=== PATIENT | female | born 1945 | race Caucasian/White ===

== ENCOUNTER 2017-10-05 08:15 | Emergency (ER) | payer OTHER, MEDICARE ==
[~2017-10-05] VITALS: Ht 149.9 cm; Wt 48.0 kg
[~2017-10-05 08:15] MED LIST: ASPI81TA11 PO; DOCU1CAP39 PO; ENOX40P SQ; HYDR-2768 PO; HYDR-3129 PO; LISI5 PO; METF500 PO; MVI PO; WALKER ROLLING; [UNRECOGNIZED DRUG - SUPPLY]
[2017-10-05 08:26] VITALS: BP 158/74; PULSE 90; RESP 18; TEMP 99.1; O2SAT 98
[2017-10-05] MEDS ORDERED: ASPI1TAB57 PO (09:48)
[2017-10-05] MEDS ORDERED: HYDR25TA5 PO (09:48)
[2017-10-05] MEDS ORDERED: LISI-519 PO (09:48)
[2017-10-05] MEDS ORDERED: MULTTAB67 PO (09:48)
[2017-10-05] MEDS ORDERED: METF500T PO (09:48)
[2017-10-05] MEDS ORDERED: COLA100C5 PO (09:48)
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
[2017-10-05] MEDS ORDERED: IBUPROFEN 600 MG TAB PO ONE (10:30)
[2017-10-05] MEDS ORDERED: CYCL5TAB PO (10:44)
== END 2017-10-05 11:00 | disposition home or self-care (01) ==
LOC: NEPK 08:15
DX: G44.319 Acute post-traumatic headache, not intractable (principal); E11.9 Type 2 diabetes mellitus without complications; I10 Essential (primary) hypertension; V49.59XA Passenger injured in collision with other motor vehicles in traffic accident, initial encounter; Z72.0 Tobacco use
CPT/HCPCS: 99283